=== PATIENT | female | born 1950 | race Asian ===

== ENCOUNTER → 2017-01-28 | Outpatient (CLI) | payer OTHER | END | disposition home or self-care (01) | LOC: CFH 06:51 | PROVIDERS: ATTEND Internal Medicine | DX: Z12.31 Encounter for screening mammogram for malignant neoplasm of breast (principal); E04.2 Nontoxic multinodular goiter | CPT/HCPCS: 76536; G0202 ==

== ENCOUNTER → 2017-04-18 | Outpatient (CLI) | payer OTHER ==
[~2017-04-18] MED LIST: ATOR20TA9 PO; CALC-192 PO; CHOL100012 PO; OMEG1CAP23 PO
== END | disposition home or self-care (01) ==
LOC: STAR 08:05
PROVIDERS: ATTEND Surgery
DX: E07.9 Disorder of thyroid, unspecified (principal)
CPT/HCPCS: 93005

== ENCOUNTER 2017-04-25 05:57 | Day surgery (SDC) | payer OTHER ==
[~2017-04-25] VITALS: Ht 154.9 cm; Wt 57.0 kg
[2017-04-25] MEDS ORDERED: LACTATED RINGERS 1,000 ML IV SCH (06:55)
[2017-04-25 06:56] VITALS: BP 135/86
[2017-04-25] MEDS ORDERED: FENTANYL PF 250 MCG/5ML ONE (07:06)
[2017-04-25] MEDS ORDERED: MIDAZOLAM 1 MG/ML, 2ML ONE (07:06)
[2017-04-25] MEDS ORDERED: LIDOCAINE 4%, 4 ML SYR/CANN TP ONE (07:12)
[2017-04-25] MEDS ORDERED: SUCCINYLCHOLINE 20 MG/ML, 10ML ONE (07:12)
[2017-04-25] MEDS ORDERED: CEFAZOLIN 1,000 MG ONE (07:12)
[2017-04-25] MEDS ORDERED: ONDANSETRON 2MG/ML, 2ML ONE (07:12)
[2017-04-25] MEDS ORDERED: GLYCOPYRROLATE 0.2MG/1ML, 5ML ONE (07:12)
[2017-04-25] MEDS ORDERED: NEOSTIGMINE 1 MG/ML, 10ML ONE (07:12)
[2017-04-25] MEDS ORDERED: ROCURONIUM 10 MG/ML,10ML ONE (07:12)
[2017-04-25] MEDS ORDERED: PROPOFOL 10 MG/ML, 20ML ONE (07:12)
[2017-04-25] MEDS ORDERED: DEXAMETHASONE 4 MG/ML, 1ML ONE (07:12)
[2017-04-25] MEDS ORDERED: PHENYLEPHRINE 10 MG/ML ONE (07:18)
[2017-04-25] MEDS ORDERED: ONDANSETRON 2MG/ML, 2ML IVPush PRN (07:30)
[2017-04-25] MEDS ORDERED: ACETAMINOPHEN 325 MG TABLET PO PRN (07:30)
[2017-04-25] MEDS ORDERED: HYDROmorphone 2 MG/ML, 1ML IV PRN (07:30)
[2017-04-25] MEDS ORDERED: FENTANYL PF 100 MCG/2ML IV PRN (07:30)
[2017-04-25] MEDS ORDERED: OXYcodone 5 MG/5 ML ORAL.SOL UDC PO PRN (07:30)
[2017-04-25] MEDS ORDERED: MEPERIDINE/PF 25MG/0.5ML IVPush PRN (07:30)
[2017-04-25] MEDS ORDERED: HYDROcodone/APAP 7.5-325MG/15ML UDC PO PRN (07:30)
[2017-04-25] MEDS ORDERED: PROMETHAZINE 12.5 MG SUPP PR PRN (07:30)
[2017-04-25] MEDS ORDERED: FENTANYL PF 100 MCG/2ML ONE (08:42)
[2017-04-25] MEDS ORDERED: ACETAMINOPHEN 650 MG/20.3 ML UDC ONE (08:42)
[2017-04-25] MEDS ORDERED: OXYcodone 5 MG/5 ML ORAL.SOL UDC ONE (08:42)
== END 2017-04-25 12:15 ==
LOC: OUT 05:57
PROVIDERS: ATTEND Surgery
DX: E04.1 Nontoxic single thyroid nodule (principal); Z98.890 Other specified postprocedural states
CPT/HCPCS: 60200; 88307; 88331; J0330; J0690; J1100; J2250; J2370; J2405; J2704; J3010; J7120; J2710; J3490; C1760

== ENCOUNTER → 2018-06-21 | Outpatient (CLI) | payer OTHER ==
[~2018-06-21] MED LIST changes: +ATOR20TA37 PO; -ATOR20TA9 PO
== END | disposition home or self-care (01) ==
LOC: CFH 08:06
PROVIDERS: ATTEND Internal Medicine
DX: Z12.31 Encounter for screening mammogram for malignant neoplasm of breast (principal)
CPT/HCPCS: 77067

== ENCOUNTER → 2019-11-08 | Outpatient (CLI) | payer MEDICARE, OTHER | END | disposition home or self-care (01) | LOC: CFH 09:19 | PROVIDERS: ATTEND Internal Medicine | DX: Z12.31 Encounter for screening mammogram for malignant neoplasm of breast (principal) | CPT/HCPCS: 77063; 77067 ==